=== PATIENT | female | born 1985 | race Caucasian/White ===

== ENCOUNTER 2017-02-15 21:03 | Emergency (ER) | payer SELFPAY ==
[2017-02-15 21:16] VITALS: BP 122/73
--- NOTE | 2017-02-15 21:19 | ER Document Report ---
HPI - HPI Patient complains to provider of: stubbed left 5th toe, was crooked Onset: Other - monday Onset/Duration: Sudden Pain Level: 3 Context: 32-year-old female stubbed her left fifth toe on a door frame and it was crooked at first but now it straightened out. Associated Symptoms: None Exacerbated by: Walking Relieved by: Denies Similar symptoms previously: No Recently seen / treated by doctor: No - ROS ROS below otherwise negative: Yes Systems Reviewed and Negative: Yes All other systems reviewed and negative Past Medical History - General Information source: Patient - Social History Smoking Status: Current Every Day Smoker Frequency of alcohol use: None Drug Abuse: None Occupation: Unemployed Lives with: Spouse/Significant other Family History: Reviewed & Not Pertinent Patient has suicidal ideation: No Patient has homicidal ideation: No - Medical History Medical History: Negative Renal/ Medical History: Denies: Hx Peritoneal Dialysis Surgical Hx: Negative - Immunizations Hx Diphtheria, Pertussis, Tetanus Vaccination: No Vertical Provider Document - CONSTITUTIONAL Agree With Documented VS: Yes Exam Limitations: No Limitations General Appearance: No Apparent Distress - INFECTION CONTROL TRAVEL OUTSIDE OF THE [place] IN LAST 30 DAYS: No - HEENT HEENT: Normocephalic - NECK Neck: Supple - RESPIRATORY O2 Sat by Pulse Oximetry: 98 - MUSCULOSKELETAL/EXTREMETIES Musculoskeletal/Extremeties: MAEW, FROM, Tender - 5th toe, Eccymosis - dorsal left foot from 3=5 MTP's - NEURO Level of Consciousness: Awake, Alert Motor/Sensory: No Motor Deficit, No Sensory Deficit Notes: 2+ DP - DERM Integumentary: Warm, Dry Course - Re-evaluation Re-evalutation: 02/15/17 21:45 Spiral fracture proximal phalanx left fifth toe, non displaced - Vital Signs Vital signs: Temp Pulse Resp BP Pulse Ox 98.1 F 103 H 18 122/73 98 02/15/17 21:15 02/15/17 21:15 02/15/17 21:15 02/15/17 21:15 02/15/17 21:15 Procedures - Immobilization Left Toe Time completed: 21:51 Pre-Proc Neuro Vasc Exam: Normal Immobilizer type: Post-op shoe, Other - andrea tape 4-5 toes Performed by: MARTA Post-Proc Neuro Vasc Exam: Normal Alignment checked and good: Yes Discharge - Discharge Clinical Impression: fractured left 5th toe Condition: Good Disposition: HOME, SELF-CARE Instructions: Andrea Taping (toes) ([facility]), Fractured Toe ([facility]), Acetaminophen, Use of Kvmt-Sgt-Imoilcm Ibuprofen ([facility]), Post-Op Shoe ([facility]) Additional Instructions: andrea tape toes to er if any concerns see orthopedic doctor for follow up, toe healing post op shoe for comfort Please complete the patient satisfaction survey if you get one, and return it.. If you do not receive a survey, then you can go to the [facility] website, [email or web address] and place your comments about your very good care. Thank you very much. It was a pleasure being your medical provider today. Referrals: AMINAH MARES MD [ACTIVE STAFF] - Follow up as needed
--- NOTE | 2017-02-15 21:54 | RADIOLOGY REPORT (SQ) ---
EXAM DESCRIPTION: TOE LEFT COMPLETED DATE/TIME: 02/15/2017 9:37 pm REASON FOR STUDY: 5th toe injury COMPARISON: None. NUMBER OF VIEWS: Three views. TECHNIQUE: AP, lateral, and oblique images acquired of the left fifth toe. LIMITATIONS: None. FINDINGS: MINERALIZATION: Normal. BONES: There is an obliquely oriented fracture through the proximal phalanx of the 5th digit. No sig nificant displacement of the fracture fragments. No other fractures are identified. JOINTS: No effusions. SOFT TISSUES: There is soft tissue swelling about the proximal portion of the 5th digit. No radiopaq ue foreign body OTHER: No other significant finding. IMPRESSION: Obliquely oriented fracture of the proximal phalanx of the 5th digit. No significant di splacement of fracture fragments. No other fractures identified. There is soft tissue swelling abou t the 5th digit base. COMMENT: SITE OF TRAUMA/COMPLAINT MARKED/STAMP COMPLETED: NO. TECHNICAL DOCUMENTATION: JOB ID: [id number] [employer]- All Rights Reserved
== END 2017-02-15 21:56 | disposition home or self-care (01) ==
LOC: ER 21:03
DX: S92.502A Displaced unspecified fracture of left lesser toe(s), initial encounter for closed fracture (principal); W22.8XXA Striking against or struck by other objects, initial encounter; F17.200 Nicotine dependence, unspecified, uncomplicated
CPT/HCPCS: 99283

== ENCOUNTER 2018-11-13 09:40 | Emergency (ER) | payer MEDICAID ==
--- NOTE | 2018-11-13 10:25 | ER Document Report ---
ED Medical Screen (RME) - General Chief Complaint: Vag Bleeding, +preg <12wks Stated Complaint: VAGINAL BLEEDING Time Seen by Provider: 11/13/18 10:19 Mode of Arrival: Ambulatory Information source: Patient TRAVEL OUTSIDE OF THE [place] IN LAST 30 DAYS: No - HPI Patient complains to provider of: preg, vaginal bleeding Notes: 11/13/18 10:24 Patient is here with complaints of being with some vaginal bleeding. Patient is a G3, P2. She has had an ultrasound verified intrauterine in the past. She is here stating she noticed some brown discharge on Monday that has now turned into some light vaginal spotting. She denies any pain. No fever. No nausea, vomiting, diarrhea. No dysuria or hematuria. No vaginal discharge. Exam Nontoxic appearing, no distress. No abdominal tenderness on limited abdominal exam in triage. Plan CBC, CMP, quantitative hCG, urinalysis, pelvic ultrasound. An initial examination was made on the patient as part of the triage process, and it was determined a more comprehensive evaluation was necessary. Initial labs were ordered and patient was transferred to another provider in the ED who assumed care and finished evaluation and plan. - Related Data Allergies/Adverse Reactions: No Known Allergies Allergy (Verified 11/13/18 09:51) Past Medical History - Social History Frequency of alcohol use: None Drug Abuse: Marijuana Renal/ Medical History: Denies: Hx Peritoneal Dialysis Past Surgical History: Reports: Hx Orthopedic Surgery - right foream - Immunizations Hx Diphtheria, Pertussis, Tetanus Vaccination: No Physical Exam - Vital signs Vitals: Temp Pulse Resp BP Pulse Ox 99.3 F 104 H 20 124/87 H 98 11/13/18 09:55 11/13/18 09:55 11/13/18 09:55 11/13/18 09:55 11/13/18 09:55 Course - Vital Signs Vital signs: Temp Pulse Resp BP Pulse Ox 99.3 F 104 H 20 124/87 H 98 11/13/18 09:55 11/13/18 09:55 11/13/18 09:55 11/13/18 09:55 11/13/18 09:55
[2018-11-13 10:54] LABS: ABSOLUTE EOSINOPHILS # (AUTO) 0.2 10^3/uL (0.0-0.6); ABSOLUTE LYMPHOCYTES (AUTO) 2.2 10^3/uL (0.5-4.7); ABSOLUTE MONOCYTES (AUTO) 0.8 10^3/uL (0.1-1.4); ABSOLUTE NEUT (AUTO) 12.5 10^3/uL (1.7-8.2); BASOPHILS % (AUTO) 0.3 % (0-2); EOSINOPHILS % (AUTO) 1.3 % (0-6); HEMATOCRIT 44.5 % (36.0-47.0); HEMOGLOBIN 15.2 g/dL (12.0-15.5); LYMPHOCYTES % (AUTO) 13.8 % (13-45); MEAN CORPUSCULAR HEMOGLOBIN 32.5 pg (27.0-33.4); MEAN CORPUSCULAR HGB CONC 34.3 g/dL (32.0-36.0); MEAN CORPUSCULAR VOLUME 95 fl (80-97); PLATELET COUNT 310 10^3/uL (150-450); RED BLOOD COUNT 4.69 10^6/uL (3.72-5.28); RED CELL DISTRIBUTION WIDTH 13.4 % (11.5-14.0); SEGMENTED NEUTROPHILS % (AUTO) 79.6 % (42-78); TOTAL CELLS COUNTED % (AUTO) 100 %; WHITE BLOOD COUNT 15.7 10^3/uL (4.0-10.5)
[2018-11-13 11:16] LABS: ALANINE AMINOTRANSFERASE 20 U/L (9-52); ALBUMIN 5.5 g/dL (3.5-5.0); ALKALINE PHOSPHATASE 55 U/L (38-126); ANION GAP 16 (5-19); APPEARANCE,URINE SLIGHTLY-CLOUDY; ASPARTATE AMINO TRANSFERASE 20 U/L (14-36); BILIRUBIN,DIRECT 0.3 mg/dL (0.0-0.4); BILIRUBIN,TOTAL 0.5 mg/dL (0.2-1.3); BILIRUBIN,URINE NEGATIVE (NEGATIVE); BLOOD UREA NITROGEN 5 mg/dL (7-20); CALCIUM 10.8 mg/dL (8.4-10.2); CARBON DIOXIDE 24 mmol/L (22-30); CHLORIDE 99 mmol/L (98-107); GLUCOSE 107 mg/dL (75-110); GLUCOSE, URINE NEGATIVE (NEGATIVE); KETONES,URINE NEGATIVE (NEGATIVE); LEUKOCYTE ESTERASE,URINE NEGATIVE (NEGATIVE); NITRITE,URINE NEGATIVE (NEGATIVE); POTASSIUM 3.8 mmol/L (3.6-5.0); PROTEIN,URINE 30 mg/dL (NEGATIVE); URINE SPECIFIC GRAVITY 1.015
[2018-11-13 11:19] LABS: COLOR,URINE YELLOW
--- NOTE | 2018-11-13 12:00 | ER Document Report ---
ED General - General Chief Complaint: Vag Bleeding, +preg <12wks Stated Complaint: VAGINAL BLEEDING Time Seen by Provider: 11/13/18 10:19 Mode of Arrival: Ambulatory TRAVEL OUTSIDE OF THE [place] IN LAST 30 DAYS: No - HPI Notes: 33-year-old female para 3 2 approximately 12 weeks presents to the ED for complaints of vaginal discharge for the last 4 days, states discharge has been brown in color, but has become progressive over the last 24 hours, denies any abdominal cramping, nausea vomiting or diarrhea. Patient did have a confirmed intrauterine , [facility]. Last menstrual period was August 20, 2018. Denies any recent trauma. Denies fevers, chills, chest pain,palpitations, shortness of breath, dyspnea, nausea, vomiting, diarrhea, abdominal pain, hematuria,blurred vision, double vision, loss of vision, speech changes, LH, dizziness, syncope, headaches, neck pain, weakness, bowel or bladder dysfunction, saddle anesthesia, numbness or tingling in bilateral upper or lower extremities equally, muscle paralysis, weakness in bilateral upper or lower extremities equally or rash. - Related Data Allergies/Adverse Reactions: No Known Allergies Allergy (Verified 11/13/18 09:51) Past Medical History - General Information source: Patient - Social History Smoking Status: Current Every Day Smoker Frequency of alcohol use: None Drug Abuse: Marijuana Family History: Reviewed & Not Pertinent Patient has suicidal ideation: No Patient has homicidal ideation: No Renal/ Medical History: Denies: Hx Peritoneal Dialysis Past Surgical History: Reports: Hx Orthopedic Surgery - right foream - Immunizations Hx Diphtheria, Pertussis, Tetanus Vaccination: No Review of Systems - Review of Systems Constitutional: No symptoms reported EENT: No symptoms reported Cardiovascular: No symptoms reported Respiratory: No symptoms reported Gastrointestinal: No symptoms reported Genitourinary: See HPI Female Genitourinary: No symptoms reported Musculoskeletal: No symptoms reported Skin: No symptoms reported Hematologic/Lymphatic: No symptoms reported Neurological/Psychological: No symptoms reported Physical Exam - Vital signs Vitals: Temp Pulse Resp BP Pulse Ox 99.3 F 104 H 20 124/87 H 98 11/13/18 09:55 11/13/18 09:55 11/13/18 09:55 11/13/18 09:55 11/13/18 09:55 - Notes Notes: PHYSICAL EXAMINATION: GENERAL: Well-appearing, well-nourished and in no acute distress. HEAD: Atraumatic, normocephalic. EYES: Pupils equal round and reactive to light, extraocular movements intact, conjunctiva are normal. ENT: Nares patent, oropharynx clear without exudates. Moist mucous membranes. NECK: Normal range of motion, supple without lymphadenopathy LUNGS: Breath sounds clear to auscultation bilaterally and equal. No wheezes rales or rhonchi. HEART: Regular rate and rhythm without murmurs ABDOMEN: Soft, nontender, nondistended abdomen. No guarding, no rebound. No masses appreciated. Female : External genitalia without erythema, exudate or discharge. Vaginal vault is without discharge. Cervix is of normal color without lesion. Uterus is noted to be of normal size and nontender. No cervical motion tenderness is seen. No masses are palpated. scant blood in the vaginal vault without clots, os nataliia sed, no adnexal tenderness or mass Musculoskeletal: Normal range of motion, no pitting or edema. No cyanosis. NEUROLOGICAL: Cranial nerves grossly intact. Normal speech, normal gait. Normal sensory, motor exams PSYCH: Normal mood, normal affect. SKIN: Warm, Dry, normal turgor, no rashes or lesions noted. 22-like and then on the other half of a flight Course - Re-evaluation Re-evalutation: 11/13/18 14:43 33-year-old female afebrile vitals stable no distress for evaluation of vaginal bleeding. CBC does show a slightly distance of 15, CMP negative for hepatic dysfunction, urinalysis does show proteinuria and hematuria, no uti. HCG is 5834 on pelvic examination patient does show to have some vaginal bleeding and pelvic, no cervical motion tenderness. Patient presents with a mild amount of vaginal bleeding in the setting of an early first trimester . Transvaginal ultrasound is unable to visualize an intrauterine at this time. Quantitative beta hCG below the zone of to margination. No active bleeding at time of presentation. She is Rh positive. Patient's abdominal exam is otherwise benign without any focal tenderness. I do not suspect an acute appendicitis, pyelonephritis, cystitis, or bowel obstruction. At this time I have informed the patient that she needs to return to the emergency department or the women's clinic in 48 hours for recheck of her quantitative beta hCG to assess whether or not this is a normal or a possible ectopic .At this time will discharge with return precautions and follow-up recommendations. Verbal discharge instructions given a the bedside and opportunity for questions given. Medication warnings reviewed. Patient is in agreement with this plan and has verbalized understanding of return precautions and the need for primary care follow-up in the next 24-72 hours. - Vital Signs Vital signs: Temp Pulse Resp BP Pulse Ox 99.3 F 104 H 20 124/87 H 98 11/13/18 09:55 11/13/18 09:55 11/13/18 09:55 11/13/18 09:55 11/13/18 09:55 - Laboratory Result Diagrams: 11/13/18 10:25 11/13/18 10:25 Laboratory results interpreted by me: 11/13/18 11/13/18 11/13/18 10:25 10:25 10:25 WBC 15.7 H Seg Neutrophils % 79.6 H Absolute Neutrophils 12.5 H BUN 5 L Calcium 10.8 H Total Protein 9.0 H Albumin 5.5 H Beta HCG, Quant 5834.10 H Urine Protein 30 H Urine Blood MODERATE H Urine Urobilinogen 2.0 H Urine Ascorbic Acid 20 H Discharge - Discharge Clinical Impression: Bacterial vaginosis, Incomplete miscarriage Condition: Stable Disposition: HOME, SELF-CARE Instructions: Vaginal Bleeding ([facility]), Miscarriage ([facility]) Additional Instructions: Miscarriage You have had a miscarriage (medically called a "spontaneous "). The miscarriage occurred because the fetus did not develop normally. There is nothing you did to cause it, and nothing you could have done to prevent it. About one in four ends in miscarriage. You should rest in bed for two or three days. As there is some risk of infection of the uterus, you should not have intercourse for one week (or until okayed by your physician). You might not have a period for six to eight weeks. You should not become again for at least three months -- the uterus requires time to get back to normal. Call the doctor or return for re-examination if there is heavy or persist ent vaginal bleeding, fever, foul discharge, continued cramping pains, or abdominal pain. Follow-up with [facility] for a repeat transvaginal ultrasound as well as serum hCG within the next 48 hours. Return immediately for any new or worsening symptoms. Follow up with primary care provider, call tomorrow to make followup appointment. Prescriptions: Metronidazole [Flagyl] 500 mg PO BID #14 tablet Referrals: ELY RIDER DO [ACTIVE STAFF] - Follow up in 3-5 days NERISSA NUGENT MD [COMMUNITY BASED STAFF] - Follow up as needed
[2018-11-13 13:17] LABS: T.VAGINALIS (WET MOUNT) NO TRICHOMONAS SEEN; WBCS (WET MOUNT) 1+ WBCS SEEN; YEAST (WET MOUNT) NO YEAST SEEN
[2018-11-13 13:18] LABS: BACTERIA (WET MOUNT) 4+ BACTERIA SEEN; EPITHELIALS (WET MOUNT) 3+ EPITHELIALS SEEN; RBCS (WET MOUNT) 4+ RBCS SEEN
--- NOTE | 2018-11-13 14:42 | RADIOLOGY REPORT (SQ) ---
EXAM DESCRIPTION: U/S OB TRANSVAGINAL W/O DOP COMPLETED DATE/TIME: 11/13/2018 2:25 pm REASON FOR STUDY: preg, vaginal bleeding COMPARISON: None. TECHNIQUE: Transabdominal static and realtime grayscale images acquired of the pelvis. Additional se lected spectral and color Doppler images recorded. All images stored on PACs. CLINICAL AGE: 12 week 1 day. bHC,834. LIMITATIONS: None. FINDINGS: UTERUS: No masses. No anomalies. GESTATIONAL SAC: Fairly large gestational sac which corresponds with an 8 week 4 day gestation. YOLK SAC: No. POLE: None present. RIGHT ADNEXA: Normal ovary with normal vascular flow. No adnexal free fluid. 1.5 x 1.7 x 2.7 cm simple cyst. LEFT ADNEXA: Ovary not identified due to poor acoustical window. No adnexal free fluid. No adnexal masses. FREE FLUID: None. OTHER: No other significant finding. IMPRESSION: LARGE EMPTY GESTATIONAL SAC. MEASUREMENTS CORRESPOND WITH AN 8 WEEK 4 DAY GESTATION. N O POLE OR YOLK SAC PRESENT. FINDINGS ARE CONSISTENT WITH BLIGHTED OVUM/ DEMISE. Trimester of : First - 0 to 13 weeks. TECHNICAL DOCUMENTATION: JOB ID: [id number] [employer]- All Rights Reserved Reading location - IP/workstation name: [email or web address]
[2018-11-13 14:48] LABS: CHLAM PCR NOT DETECTED (NOT DETECT); GON PCR NOT DETECTED (NOT DETECT)
[2018-11-13 14:50] VITALS: BP 129/87
== END 2018-11-13 14:55 | disposition home or self-care (01) ==
LOC: ER 09:40
DX: O03.0 Genital tract and pelvic infection following incomplete spontaneous abortion (principal); B96.89 Other specified bacterial agents as the cause of diseases classified elsewhere; R31.9 Hematuria, unspecified; R80.9 Proteinuria, unspecified; F17.200 Nicotine dependence, unspecified, uncomplicated
CPT/HCPCS: 36415; 76817; 80053; 81001; 84702; 85025; 86900; 86901; 87210; 87491; 87591; 99284